=== PATIENT | male | born 2000 ===

== ENCOUNTER 2020-06-23 11:27 | Emergency (ER) | payer OTHER ==
[~2020-06-23] VITALS: Ht 182.9 cm; Wt 107.3 kg
--- NOTE | 2020-06-23 11:49 | NUR ---
PT BROUGHT BACK TO ROOM FROM TRIAGE. PT CO EPIGASTRIC/ABD PAIN X3 DAYS. PT DENIES ANY N/V/D, FEVER OR BLOOD IN STOOL OR URINE. PT DENIES ANY PMH.
[2020-06-23] MEDS ORDERED: HYDROcodone/APAP 5/325 TABLET PO ONE (12:00)
[2020-06-23] MEDS ORDERED: ONDANSETRON ODT 4 MG PO ONE (12:00)
[2020-06-23] MEDS ORDERED: HYDROcodone/APAP 5/325 TABLET ONE (12:01)
[2020-06-23] MEDS ORDERED: ONDANSETRON ODT 4 MG ONE (12:01)
--- NOTE | 2020-06-23 12:05 | NUR ---
US AT BEDSIDE
[2020-06-23 12:11] LABS: BASOPHILS % (AUTO) 0 % (0-1); EOSINOPHILS % (AUTO) 1 % (1-7); LYMPHOCYTES % (AUTO) 20 % (22-44); MEAN CORPUSCULAR HEMOGLOBIN 30.2 pg (27.5-34.5); MEAN CORPUSCULAR HGB CONC 34.5 g/dL (33.2-36.2); MEAN PLATELET VOLUME 7.5 fL (7.4-10.4); MONOCYTES % (AUTO) 9 % (2-9); NEUTROPHILS % (AUTO) 70 % (42-75); PLATELET COUNT 253 x10^3/uL (130-400); RED BLOOD COUNT 5.37 x10^6/uL (4.38-5.82); RED CELL DISTRIBUTION WIDTH 12.8 % (9.4-14.8)
[2020-06-23 12:12] LABS: MD NO
[2020-06-23] MEDS ORDERED: FAMOTIDINE 20 MG TABLET ONE (12:18)
[2020-06-23 12:22] LABS: ALANINE AMINOTRANSFERASE 20 U/L (12-78); ALBUMIN 4.6 g/dL (3.4-5.0); ANION GAP 5 mmol/L (5-15); CALCIUM 9.7 mg/dL (8.5-10.1); CHLORIDE 111 mmol/L (98-107)
[2020-06-23 12:24] LABS: ALKALINE PHOSPHATASE 59 U/L (45-117); BILIRUBIN,TOTAL 0.7 mg/dL (0.2-1.0); TOTAL PROTEIN 7.9 g/dL (6.4-8.2)
[2020-06-23 12:29] VITALS: BP 144/84
[2020-06-23] MEDS ORDERED: FAMOTIDINE 20 MG TABLET PO ONE (12:30)
--- NOTE | 2020-06-23 13:04 | NUR ---
DISCHARGE INSTRUCTIONS REVIEWED WITH PT. ALL QUESTIONS ANSWERED AT THIS TIME.
== END 2020-06-23 13:07 | disposition home or self-care (01) ==
LOC: ED 12:45
DX: R10.13 Epigastric pain (principal)
CPT/HCPCS: 36415; 76700; 80053; 83690; 85025; 99284; Q0162

== ENCOUNTER 2020-11-05 12:40 | Emergency (ER) | payer OTHER ==
[~2020-11-05] VITALS: Ht 182.9 cm; Wt 106.1 kg
[2020-11-05 13:57] VITALS: BP 143/94
--- NOTE | 2020-11-05 15:23 | NUR ---
Patient given discharge instructions and they have confirmed that they understand the instructions. Patient ambulatory with steady gait.
== END 2020-11-05 15:25 | disposition home or self-care (01) ==
LOC: ED 13:00
DX: D17.79 Benign lipomatous neoplasm of other sites (principal)
CPT/HCPCS: 99281